=== PATIENT | male | born 2000 | race Caucasian/White ===

== ENCOUNTER 2021-01-14 13:29 | Inpatient (IN) ==
[2021-01-14] MEDS ORDERED: SODIUM CHLORIDE 0.9% 500 ML IV STA (14:23)
--- NOTE | 2021-01-14 14:25 | Emergency Department Note ---
Impression & Plan Lyme carditis ED Provider Note Provider: Eliu Arias MD DATE OF SERVICE: 01/14/2021 CHIEF COMPLAINT: Fatigue, dizzy, heart issue HISTORY OF PRESENT ILLNESS: Patient is a otherwise healthy 20-year-old gentleman presenting today referred from the outpatient clinic for possible heart issue. Patient reports over the past approximately 5 days has developed some intermittent palpitations as low heart rate with some fatigue and dizziness. No syncope reported. Patient was overseas in [place] when this started. Denies any fever or illness and had negative Covid test prior to returning here. States he was at the clinic today for evaluation given his complaints was noted to have an abnormal EKG and was sent here for further evaluation. Does report 2 weeks ago before leaving he tells a blotchy rash across his thorax and had some transient fevers and myalgias with this ; rash has resolved. Patient denies any shortness of breath or abdominal symptoms such as nausea vomiting or diarrhea at this time. Denies any pain complaints. Rash again has resolved at this time. He has concerns for possible tickborne illness. REVIEW OF SYSTEMS: A total of 10 review of systems was obtained and negative except as stated above in the HPI. PAST MEDICAL HISTORY: As noted above MEDICATIONS: No prescription medications SOCIAL HISTORY:non-smoker, [employer] student PHYSICAL EXAM: GENERAL: alert and oriented in no acute distress on stretcher Head: normocephalic and atraumatic EYES: No injection, discharge or icterus. NECK: Trachea midline. Supple. ENT: Mucous membranes pink and moist. Pharynx without erythema or exudate. LUNGS: Airway patent. No retractions. Breath sounds clear with good air entry bilaterally. HEART: Regular bradycardic rate and rhythm. No chest wall tenderness ABDOMEN: Soft and non-tender, without guarding or rebound. No hepatosplenomegaly or masses BACK: No midline tenderness, no SI joint tenderness. No bilateral flank tenderness. SKIN: Acyanotic, warm, dry, without rashes EXTREMITIES: Without swelling, tenderness or deformity NEUROLOGICAL: No focal deficits. No aphasia. No facial droop or slurred speech. Normal strength and tone in the extremities. Sensation to gross touch normal. Ambulatory. EK bpm appears to be 2:1 heart block with PAC and significant IA prolongation. CONTINUOUS CARDIAC MONITORING: was ordered and showed a heart rate of bpm in 2- 1 heart block with occasional PAC later transient. Later some intermittent periods of sinus rhythm versus accelerated junctional rhythm. Patient's laboratory studies and imaging reviewed. Differential includes Infection, dehydration, metabolic abnormality, hypo/hyperglycemia, electrolyte disturbance, anemia, hypoxia, cardiac sources, intracerebral event, toxicologic, neurologic, as well as other pathologies. IMPRESSION/MEDICAL DECISION MAKING: Patient complains of fatigue and weakness but no syncope. Not hypoxic or tachycardic. Lower suspicion for PE. Given the EKG question AV dysfunction and possible infectious source such as tickborne illness. Basic labs were sent including Lyme screen and anaplasmosis screen. Basic labs are reassuring chest x-ray without acute findings. Of lower suspicion for acute PE as is no evidence of DVT on clinical exam and. Symptoms do not seem that consistent with PE. Lyme screen is positive. Anaplasmosis negative. Discussed with cardiology likely a low degree heart block. 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 Patient has been hemodynamically stable here. Covid negative. Hospitalist contacted. Patient family updated at bedside. DIAGNOSIS: Lyme carditis DISPOSITION: Hospitalist will evaluate Patient was agreeable with this plan. Past Med/Surg History Social History Smoking Status: Never smoker Feels Safe at Home: Yes Allergies Allergies Allergy/AdvReac Type Severity Reaction Status Date / Time Penicillins Allergy Rash Unverified 01/14/21 16:04 Home Meds Home Medications Medication Instructions Recorded Confirmed diphenhydramine HCl 25 mg capsule 25 mg PO Q6H PRN 01/14/21 01/14/21 (Benadryl) fexofenadine 180 mg tablet 180 mg PO DAILY 01/14/21 01/14/21 fluticasone propionate 50 2 spray INTRANASAL DAILY 01/14/21 01/14/21 mcg/actuation nasal spray,suspension Results & Data (ED) Vital Signs Vital Signs - 24 hr 01/14/21 13:52 01/14/21 14:25 01/14/21 15:52 Temperature 37.3 C Temperature Source Oral Pulse Rate 43 L 79 Pulse Rate [Apical] 45 L Pulse Rate from SpO2 Sensor Pulse Rhythm Regular Pulse Rhythm [Apical] Irregular Pulse Strength Normal Respiratory Rate 20 16 16 Respiratory Effort / Characteristics Non-Labored Spontaneous Non-Labored Respiratory Depth Normal Normal Respiratory Pattern Regular Blood Pressure 118/73 122/72 Blood Pressure [Right Arm] 138/66 Blood Pressure Mean 88 88 Blood Pressure Mean [Right Arm] 90 Pulse Oximetry 99 99 100 Oxygen Delivery Method Room Air Room Air Sepsis Recent Fever Within 48 Hours No Sepsis New/Unexplained Change in Mental Status N/A Sepsis Action Taken by Nursing No Action Required 01/14/21 16:00 01/14/21 17:00 01/14/21 17:30 Temperature Temperature Source Pulse Rate 86 84 88 Pulse Rate [Apical] Pulse Rate from SpO2 Sensor 87 Pulse Rhythm Pulse Rhythm [Apical] Pulse Strength Respiratory Rate 15 14 16 Respiratory Effort / Characteristics Respiratory Depth Respiratory Pattern Blood Pressure 133/79 132/75 113/67 Blood Pressure [Right Arm] Blood Pressure Mean 97 94 82 Blood Pressure Mean [Right Arm] Pulse Oximetry 100 100 100 Oxygen Delivery Method Sepsis Recent Fever Within 48 Hours Sepsis New/Unexplained Change in Mental Status Sepsis Action Taken by Nursing 01/14/21 18:01 Temperature Temperature Source Pulse Rate 63 Pulse Rate [Apical] Pulse Rate from SpO2 Sensor Pulse Rhythm Pulse Rhythm [Apical] Pulse Strength Respiratory Rate 17 Respiratory Effort / Characteristics Respiratory Depth Respiratory Pattern Blood Pressure 110/71 Blood Pressure [Right Arm] Blood Pressure Mean 84 Blood Pressure Mean [Right Arm] Pulse Oximetry 99 Oxygen Delivery Method Sepsis Recent Fever Within 48 Hours Sepsis New/Unexplained Change in Mental Status Sepsis Action Taken by Nursing Laboratory Data Result diagrams: 01/14/21 14:26 01/14/21 14:26 Lab Results 01/14/21 01/14/21 01/14/21 Range/Units 14:26 14:26 14:26 WBC 8.14 (4.8-10.8) K/uL RBC 4.40 L (4.7-6.1) M/uL Hgb 13.0 L (14.0-18.0) g/dL Hct 39.6 L (42-52) % MCV 90.0 (80-100) fL MCH 29.5 (25-34) pg MCHC 32.8 (32-36) g/dL RDW Std Deviation 43.9 (36.4-46.3) fL RDW Coeff of Pavel 13.3 (11.5-14.5) % Plt Count 356 (130-400) K/uL MPV 10.9 H (7.4-10.4) fL Immature Gran % (Auto) 0.2 % Neut % (Auto) 58.1 % Lymph % (Auto) 28.3 % Elmore % (Auto) 9.1 % Eos % (Auto) 3.7 % Baso % (Auto) 0.6 % Neut # (Auto) 4.73 (1.4-6.5) K/uL Lymph # (Auto) 2.30 (1.2-3.4) K/uL Elmore # (Auto) 0.74 H (0.11-0.59) K/uL Eos # (Auto) 0.30 (0-0.5) K/uL Baso # (Auto) 0.05 (0-0.2) K/uL Immature Gran # (Auto) 0.02 (0.00-0.02) K/uL PT 10.4 (9.0-12.0) Seconds INR 1.0 (0.9-1.1) Sodium (136-145) mmol/L Potassium (3.5-5.1) mmol/L Chloride (98-107) mmol/L Carbon Dioxide (21-32) mmol/L Anion Gap (3-11) BUN (7-18) mg/dl Creatinine (0.6-1.4) mg/dl Est Cr Clr Drug Dosing ml/min Est GFR ( Amer) ml/min Est GFR (Non-Af Amer) ml/min BUN/Creatinine Ratio (10-20) Glucose (70-99) mg/dl Calcium (8.5-10.1) mg/dl Magnesium (1.8-2.4) mg/dl Total Bilirubin (0.2-1) mg/dl AST (15-37) U/L ALT (12-78) U/L Alkaline Phosphatase (45-117) U/L Troponin I (0-0.045) ng/ml Total Protein (6.4-8.2) gm/dl Albumin (3.4-5.0) gm/dl Globulin (2.5-4.0) gm/dl Albumin/Globulin Ratio (0.9-2) TSH (0.300-4.500) uIu/ml Anaplasma Smear See Comment Lyme Disease IgG Ab (Negative) Lyme Disease IgM Ab (Negative) COVID-19 Eval Order SARS-CoV-2 (PCR) (Negative) 01/14/21 01/14/21 01/14/21 Range/Units 14:26 14:26 14:38 WBC (4.8-10.8) K/uL RBC (4.7-6.1) M/uL Hgb (14.0-18.0) g/dL Hct (42-52) % MCV (80-100) fL MCH (25-34) pg MCHC (32-36) g/dL RDW Std Deviation (36.4-46.3) fL RDW Coeff of Pavel (11.5-14.5) % Plt Count (130-400) K/uL MPV (7.4-10.4) fL Immature Gran % (Auto) % Neut % (Auto) % Lymph % (Auto) % Elmore % (Auto) % Eos % (Auto) % Baso % (Auto) % Neut # (Auto) (1.4-6.5) K/uL Lymph # (Auto) (1.2-3.4) K/uL Elmore # (Auto) (0.11-0.59) K/uL Eos # (Auto) (0-0.5) K/uL Baso # (Auto) (0-0.2) K/uL Immature Gran # (Auto) (0.00-0.02) K/uL PT (9.0-12.0) Seconds INR (0.9-1.1) Sodium 142 (136-145) mmol/L Potassium 3.6 (3.5-5.1) mmol/L Chloride 112 H (98-107) mmol/L Carbon Dioxide 26 (21-32) mmol/L Anion Gap 4.0 (3-11) BUN 9 (7-18) mg/dl Creatinine 0.74 (0.6-1.4) mg/dl Est Cr Clr Drug Dosing 154.1 ml/min Est GFR ( Amer) > 150.0 ml/min Est GFR (Non-Af Amer) 132.8 ml/min BUN/Creatinine Ratio 12.4 (10-20) Glucose 93 (70-99) mg/dl Calcium 8.4 L (8.5-10.1) mg/dl Magnesium 2.2 (1.8-2.4) mg/dl Total Bilirubin 0.2 (0.2-1) mg/dl AST 16 (15-37) U/L ALT 26 (12-78) U/L Alkaline Phosphatase 60 (45-117) U/L Troponin I < 0.015 (0-0.045) ng/ml Total Protein 6.7 (6.4-8.2) gm/dl Albumin 3.1 L (3.4-5.0) gm/dl Globulin 3.6 (2.5-4.0) gm/dl Albumin/Globulin Ratio 0.9 (0.9-2) TSH 1.460 (0.300-4.500) uIu/ml Anaplasma Smear Lyme Disease IgG Ab Positive A (Negative) Lyme Disease IgM Ab Positive A (Negative) COVID-19 Eval Order Covid19 at [facility] SARS-CoV-2 (PCR) (Negative) 01/14/21 Range/Units 14:38 WBC (4.8-10.8) K/uL RBC (4.7-6.1) M/uL Hgb (14.0-18.0) g/dL Hct (42-52) % MCV (80-100) fL MCH (25-34) pg MCHC (32-36) g/dL RDW Std Deviation (36.4-46.3) fL RDW Coeff of Pavel (11.5-14.5) % Plt Count (130-400) K/uL MPV (7.4-10.4) fL Immature Gran % (Auto) % Neut % (Auto) % Lymph % (Auto) % Elmore % (Auto) % Eos % (Auto) % Baso % (Auto) % Neut # (Auto) (1.4-6.5) K/uL Lymph # (Auto) (1.2-3.4) K/uL Elmore # (Auto) (0.11-0.59) K/uL Eos # (Auto) (0-0.5) K/uL Baso # (Auto) (0-0.2) K/uL Immature Gran # (Auto) (0.00-0.02) K/uL PT (9.0-12.0) Seconds INR (0.9-1.1) Sodium (136-145) mmol/L Potassium (3.5-5.1) mmol/L Chloride (98-107) mmol/L Carbon Dioxide (21-32) mmol/L Anion Gap (3-11) BUN (7-18) mg/dl Creatinine (0.6-1.4) mg/dl Est Cr Clr Drug Dosing ml/min Est GFR ( Amer) ml/min Est GFR (Non-Af Amer) ml/min BUN/Creatinine Ratio (10-20) Glucose (70-99) mg/dl Calcium (8.5-10.1) mg/dl Magnesium (1.8-2.4) mg/dl Total Bilirubin (0.2-1) mg/dl AST (15-37) U/L ALT (12-78) U/L Alkaline Phosphatase (45-117) U/L Troponin I (0-0.045) ng/ml Total Protein (6.4-8.2) gm/dl Albumin (3.4-5.0) gm/dl Globulin (2.5-4.0) gm/dl Albumin/Globulin Ratio (0.9-2) TSH (0.300-4.500) uIu/ml Anaplasma Smear Lyme Disease IgG Ab (Negative) Lyme Disease IgM Ab (Negative) COVID-19 Eval Order SARS-CoV-2 (PCR) NEGATIVE (Negative) Administered Medications Discontinued Medications Sodium Chloride (Nss) 500 mls @ 999 mls/hr IV .Q31M STA Stop: 01/14/21 14:53 Last Infusion: 01/14/21 15:51 Dose: 0 mls/hr Documented by: [id number] Admin: 01/14/21 14:33 Dose: 999 mls/hr Documented by: [id number] Ceftriaxone Sodium (Rocephin) 2,000 mg in 70 mls @ 140 mls/hr IV NOW STA Stop: 01/14/21 16:26 Last Infusion: 01/14/21 17:26 Dose: 0 mls/hr Documented by: [id number] Admin: 01/14/21 16:51 Dose: 140 mls/hr Documented by: [id number] Imaging Data Radiologist's Impression: Chest X-Ray 01/14/21 14:23 SINGLE VIEW CHEST CLINICAL HISTORY: Dysrhythmia. Dizziness. FINDINGS: An AP, portable, upright chest radiograph is obtained. No prior studies are available for comparison at the time of dictation. The c ardiomediastinal silhouette is unremarkable. The lungs and pleural spaces are clear. No pneumothorax is seen. The bony thorax is grossly intact. IMPRESSION: No active disease in the chest. ACT 112: Negative or not required by law. Electronically signed by: Robbie Matthews M.D. 01/14/2021 3:13 PM Discharge Plan Visit Data Chief Complaint: Abnormal Labs/Diagnostic Testing Stated Complaint: ABNORMAL EKG ED Provider: Eliu Arias Discharge Problem: Lyme carditis Patient Disposition: Being Evaluated by Hospitalist Forms Stand Alone Forms: [facility] Prescriptions Prescriptions: No Action fexofenadine [Shelly] 180 mg Tablet 180 mg PO DAILY RF: 0 diphenhydramine HCl [Benadryl] 25 mg Capsule 25 mg PO Q6H PRN (Reason: Allergy Symptoms) RF: 0 fluticasone propionate [Flonase] 50 mcg/actuation Rhame,Suspension 2 spray INTRANASAL DAILY RF: 0 Referrals Referrals: Jorge Gutierrez [Physician] -
[2021-01-14 14:46] LABS: Basophils # (auto) 0.05 K/uL (0-0.2); Basophils % (auto) 0.6 %; Eosinophils % (auto) 3.7 %; Hematocrit (blood only) 39.6 % (42-52); Immature Granulocytes # (auto) 0.02 K/uL (0.00-0.02); Immature Granulocytes % (auto) 0.2 %; Lymphocytes % (auto) 28.3 %; Mean Corpuscular Hemoglobin 29.5 pg (25-34); Mean Corpuscular Hgb Conc 32.8 g/dL (32-36); Mean Platelet Volume 10.9 fL (7.4-10.4); Monocytes # (auto) 0.74 K/uL (0.11-0.59); Monocytes % (auto) 9.1 %; Neutrophils # (auto) 4.73 K/uL (1.4-6.5); Neutrophils % (auto) 58.1 %; Platelet Count 356 K/uL (130-400); RDW Coefficient of Variation 13.3 % (11.5-14.5); RDW Standard Deviation 43.9 fL (36.4-46.3); White Blood Count 8.14 K/uL (4.8-10.8)
[2021-01-14 14:54] LABS: Prothrombin Time 10.4 Seconds (9.0-12.0)
[2021-01-14 15:08] LABS: Alanine Aminotransferase 26 U/L (12-78); Albumin Level 3.1 gm/dl (3.4-5.0); Aspartate Aminotransferase 16 U/L (15-37); BUN Creatinine Ratio 12.4 (10-20); Blood Urea Nitrogen 9 mg/dl (7-18); Calcium 8.4 mg/dl (8.5-10.1); Carbon Dioxide 26 mmol/L (21-32); Chloride 112 mmol/L (98-107); Creatinine Clr Calc Pharmacy 154.1 ml/min; Est GFR (African American) > 150.0 ml/min; Est GFR (Non-African American) 132.8 ml/min; Glucose 93 mg/dl (70-99); Potassium 3.6 mmol/L (3.5-5.1); Sodium 142 mmol/L (136-145)
--- NOTE | 2021-01-14 15:15 | XRay Report ---
SINGLE VIEW CHEST CLINICAL HISTORY: Dysrhythmia. Dizziness. FINDINGS: An AP, portable, upright chest radiograph is obtained. No prior studies are available for c omparison at the time of dictation. The cardiomediastinal silhouette is unremarkable. The lungs and pleural spaces are clear. No pneumothorax is seen. The bony thorax is grossly intact. IMPRESSION: No active disease in the chest. ACT 112: Negative or not required by law. Electronically signed by: Robbie Matthews M.D. 01/14/2021 3:13 PM
[2021-01-14 15:18] LABS: Albumin Globulin Ratio 0.9 (0.9-2); Alkaline Phosphatase 60 U/L (45-117); Bilirubin,Total 0.2 mg/dl (0.2-1); Globulin 3.6 gm/dl (2.5-4.0); Magnesium 2.2 mg/dl (1.8-2.4); Total Protein 6.7 gm/dl (6.4-8.2); Troponin I < 0.015 ng/ml (0-0.045)
[2021-01-14 15:43] LABS: Lyme Ab IgG w/WB Rflx Positive (Negative); Lyme Ab IgM w/WB Rflx Positive (Negative)
--- NOTE | 2021-01-14 15:45 | Electrocardiogram Report ---
Test Reason : Blood Pressure : / mmHG Vent. Rate : 049 BPM Atrial Rate : 082 BPM P-R Int : 000 ms QRS Dur : 098 ms QT Int : 494 ms P-R-T Axes : 059 096 081 degrees QTc Int : 446 ms Sinus rhythm with 2nd degree A-V block (Mobitz I) Rightward axis Borderline ECG No previous ECGs available Confirmed by David Lucia ([id number]) on 01/14/2021 3:45:30 PM Referred By: Eligio Galo Confirmed By:David Lucia
[2021-01-14] MEDS ORDERED: cefTRIAXone SODIUM 2,000 MG/70 ML BAG IV STA (15:57)
--- NOTE | 2021-01-14 16:54 | History & Physical Report ---
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 Patient is pleasant and historian. Patient apparently had a blotchy rash across his thorax along with some myalgias and fevers 2 weeks ago which had cleared spontaneously. Patient did not seek medical attention at that time. Over the past 5 days he feels he has been having some palpitations irregular heart rate. He has been having some mild fatigue and dizziness associated with this. He did go to the [facility] today and was found to have abnormal EKG which prompted his visit to the emergency room today. On lab work-up, he was found to have Lyme IgM and IgG that was positive with a pending Western blot. Patient is now being admitted for Lyme carditis. I did discuss the case with the patient with both his parents in the room and everybody is agreeable to the plan thus far. Allergies Allergy/AdvReac Type Severity Reaction Status Date / Time Penicillins Allergy Rash Unverified 01/14/21 16:04 Home Medications Medication Instructions Recorded Confirmed Type diphenhydramine HCl 25 mg capsule 25 mg PO Q6H PRN 01/14/21 01/14/21 History (Benadryl) fexofenadine 180 mg tablet 180 mg PO DAILY 01/14/21 01/14/21 History fluticasone propionate 50 2 spray INTRANASAL DAILY 01/14/21 01/14/21 History mcg/actuation nasal spray,suspension Past Med/Surg History Social History Smoking Status: Never smoker Feels Safe at Home: Yes Review of Systems Constitutional: + weakness; no fever, no chills, no weight loss and no weight gain Eyes: as per Subjective / HPI Respiratory: no cough, no chest congestion, no dyspnea and no dyspnea on exertion Cardiovascular: + problem reported; no chest pain, no orthopnea, no palpitations, no lightheadedness, no syncope and no edema Gastrointestinal: no abdominal pain, no nausea, no vomiting, no constipation and no diarrhea/loose stools Musculoskeletal: no back pain, no neck pain, no joint pain, no stiffness and no myalgia Integumentary: no rash Neurologic: no gait abnormality, no unsteadiness, no falls and no generalized weakness Physical Exam Constitutional: cooperative; no acute distress Neck: trachea midline, no thyromegaly Respiratory: normal respiratory effort Auscultation: lungs clear to auscultation bilaterally; no crackles, no rales, no rhonchi and no wheezes Cardiovascular: Rate/Rhythm: + bradycardic and + irregularly irregular Heart Sounds: normal S1 and normal S2 Gastrointestinal (Abdomen): Inspection/Auscultation: abdomen normal to inspection Percussion/Palpation: abdomen soft; abdomen nontender, no guarding, abdomen not rigid and no hepatosplenomegaly Skin: no rashes, warm and dry Results & Data Results & Data ([facility]) Vital Signs (Past 12 Hours) Vital Signs Temp Pulse Pulse Resp BP BP Pulse Ox 01/14/21 16:00 86 15 133/79 100 01/14/21 15:52 79 16 122/72 100 01/14/21 14:25 45 L 16 138/66 99 01/14/21 13:52 37.3 C 43 L 20 118/73 99 Laboratory Results Laboratory Results WBC 8.14 K/uL (4.8-10.8) 01/14/21 14:26 RBC 4.40 M/uL (4.7-6.1) L 01/14/21 14:26 Hgb 13.0 g/dL (14.0-18.0) L 01/14/21 14:26 Hct 39.6 % (42-52) L 01/14/21 14:26 MCV 90.0 fL (80-100) 01/14/21 14:26 MCH 29.5 pg (25-34) 01/14/21 14:26 MCHC 32.8 g/dL (32-36) 01/14/21 14:26 RDW Std Deviation 43.9 fL (36.4-46.3) 01/14/21 14:26 RDW Coeff of Pavel 13.3 % (11.5-14.5) 01/14/21 14: Plt Count 356 K/uL (130-400) 01/14/21 14: MPV 10.9 fL (7.4-10.4) H 01/14/21 14:26 Immature Gran % (Auto) 0.2 % 01/14/21 14: Neut % (Auto) 58.1 % 01/14/21 14: Lymph % (Auto) 28.3 % 01/14/21 14:26 [place]aca % (Auto) 9.1 % 01/14/21 14:26 Eos % (Auto) 3.7 % 01/14/21 14:26 Baso % (Auto) 0.6 % 01/14/21 14: Neut # (Auto) 4.73 K/uL (1.4-6.5) 01/14/21 14: Lymph # (Auto) 2.30 K/uL (1.2-3.4) 01/14/21 14:26 Baca # (Auto) 0.74 K/uL (0.11-0.59) H 01/14/21 14:26 Eos # (Auto) 0.30 K/uL (0-0.5) 01/14/21 14: Baso # (Auto) 0.05 K/uL (0-0.2) 01/14/21 14: Immature Gran # (Auto) 0.02 K/uL (0.00-0.02) 01/14/21 14: PT 10.4 Seconds (9.0-12.0) 01/14/21 14:26 INR 1.0 (0.9-1.1) 01/14/21 14:26 Sodium 142 mmol/L (136-145) 01/14/21 14:26 Potassium 3.6 mmol/L (3.5-5.1) 01/14/21 14:26 Chloride 112 mmol/L (98-107) H 01/14/21 14:26 Carbon Dioxide 26 mmol/L (21-32) 01/14/21 14:26 Anion Gap 4.0 (3-11) 01/14/21 14:26 BUN 9 mg/dl (7-18) 01/14/21 14:26 Creatinine 0.74 mg/dl (0.6-1.4) 01/14/21 14:26 Est Cr Clr Drug Dosing 154.1 ml/min 01/14/21 14:26 Est GFR ( Amer) > 150.0 ml/min 01/14/21 14:26 Est GFR (Non-Af Amer) 132.8 ml/min 01/14/21 14:26 BUN/Creatinine Ratio 12.4 (10-20) 01/14/21 14:26 Glucose 93 mg/dl (70-99) 01/14/21 14:26 Calcium 8.4 mg/dl (8.5-10.1) L 01/14/21 14:26 Magnesium 2.2 mg/dl (1.8-2.4) 01/14/21 14:26 Total Bilirubin 0.2 mg/dl (0.2-1) 01/14/21 14:26 AST 16 U/L (15-37) 01/14/21 14:26 ALT 26 U/L (12-78) 01/14/21 14:26 Alkaline Phosphatase 60 U/L (45-117) 01/14/21 14:26 Troponin I < 0.015 ng/ml (0-0.045) 01/14/21 14:26 Total Protein 6.7 gm/dl (6.4-8.2) 01/14/21 14:26 Albumin 3.1 gm/dl (3.4-5.0) L 01/14/21 14:26 Globulin 3.6 gm/dl (2.5-4.0) 01/14/21 14:26 Albumin/Globulin Ratio 0.9 (0.9-2) 01/14/21 14:26 TSH 1.460 uIu/ml (0.300-4.500) 01/14/21 14:26 Anaplasma Smear See Comment 01/14/21 14:26 Lyme Disease IgG Ab Positive (Negative) A 01/14/21 14:26 Lyme Disease IgM Ab Positive (Negative) A 01/14/21 14:26 COVID-19 Eval Order Covid19 at [facility] 01/14/21 14:38 SARS-CoV-2 (PCR) NEGATIVE (Negative) 01/14/21 14:38 Impressions Chest X-Ray 01/14/21 14:23 SINGLE VIEW CHEST CLINICAL HISTORY: Dysrhythmia. Dizziness. FINDINGS: An AP, portable, upright chest radiograph is obtained. No prior studies are available for comparison at the time of dictation. The cardiomediastinal silhouette is unremarkable. The lungs and pleural spaces are clear. No pneumothorax is seen. The bony thorax is grossly intact. IMPRESSION: No active disease in the chest. ACT 112: Negative or not required by law. Electronically signed by: Robbie Matthews M.D. 01/14/2021 3:13 PM PG Care Time/CCT Total # of Minutes Spent Total Time Spent with Patient: Total time spent is greater than 50% in coordination of care (as documented) at patient's floor/unit and/or counseling patient: Coding Level of Care Code 62353 Initial Inpt Care Lvl 3 Diagnoses Lyme carditis A69.29; I51.89
[2021-01-14] MEDS ORDERED: ZOLPIDEM TARTRATE 5 MG TAB PO PRN (19:36)
[2021-01-14] MEDS ORDERED: diphenhydrAMINE Capsule 25 MG CAP PO PRN (19:36)
[2021-01-15] MEDS: FEXOFENADINE HCL 180 MG TAB PO SCH (08:19)
[2021-01-15] MEDS: FLUTICASONE PROPIONATE NA SPR 16 GM BTL SCH (08:19)
--- NOTE | 2021-01-15 09:21 | Medical Student Progress Note ---
Date of Service January 15, 2021 Assessment & Plan (1) Lyme carditis: Plan: Pt is a 20 yo male with no PMH with lyme carditis. 1) Lyme Carditis In light of consistent outdoor exposure, presence of rash with fever 2 weeks prior, new onset heart block, and presence of Lyme IgM and IgG, diagnosis is Lyme Carditis. Most recent ECG demonstrates 3rd degree heart block. Plan is to treat and monitor in hospital until normal ECG and then discharge with oral doxycycline for 14 days. - Continued treatment with Ceftriaxone IV 70 mls @ 100 mls/hr IV Q24 - Was seen by Cardiology, did not reccomend pacing and suggested consideration for at-home treatment. - Will monitor ECG for heart block improvements. Full Code F/N/E: Normal Diet Dispo: Med/Tele DVR Prophylaxis: Walking Admission and Anticipated Discharge Date Admission Date: January 14, 2021 Supervising Attestation I personally examined the patient and verified all coreas points of history and exam, discussed case, and agree with decision making with Ramiro Gr MS3 Feels okay. Eating well. Expresses good understanding of the situation. Vitals noted. In general he is awake and alert pleasant no distress. HEENT normocephalic atraumatic mucous membranes moist. Breathing unlabored no accessory muscle use good effort. Skin shows no rashes no pallor or icterus. Neuro without focal deficits. EKG with complete heart block. Lyme carditiswith complete heart block. Ceftriaxone until EKG normalizes. Then anticipate home on doxycycline. Otherwise as above. Subjective Maximino Cintron is a 20 yo male with no pmh presenting on the second day of his hospital admission for suspected lyme carditis. 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 Pt reports rash accross the thorax approx 2 weeks ago that was accompanied by fever, joint pain, adn neck stiffness. Maximino was in [place] one week ago when symptoms of heart palpitations, fatigue, and dizziness began. He visited the ER yesterday, 01-14-21, following an abnormal ECG during an outpatient examination at [facility]. In the ER an ECG showed second degree heart block type II and PCR was positive for Lyme IgM and IgG. Western blot is pending. The pt was started on IV Ceftriaxone and serial ECG were ordered. Today, Maximino does not report any symptoms with the except of an occasional "strong heart beat". He does not endorse fever, dizziness, fatigue, chest discomfort, fast heart rate, pain, or sensory or motor changes. Review of Systems Review of Systems: Constitutional: Denies fever Neuro: Denies Headache, dizziness, changes in vision, changes in hearing, sensory disfunction, motor changes. Cardio: Endorses abnormal intensity, Denies palpitations, chest pain Pulm: Denies SOB, cough GI: Denies n/v, constipations, changes in bowel movements : Denies changes in urination Psych: Denies delusions Physical Exam Physical Exam: General: Pt was sitting up in bed, conversant, in no apparent distress. Vitals: 116/69, 92 HR, 17 RR, 37.3 C, 100 O2 sat HEENT: PEERLA, EOM intact, appropriate finger-rub response Cardio: Strong pulse, Irregularly irregular, No additional heart sounds auscultated. Pulm: CTA Neuro: CN 2-12 intact, no sensory deficits b/l, motor 5/5 b/l Psych: Affect congruent with mood. Results & Data ([facility]) Vital Signs (Past 12 Hours) Vital Signs Temp Pulse Pulse Resp BP Pulse Ox 01/15/21 07:55 37.3 C 92 H 17 116/69 100 01/15/21 04:02 37.1 C 70 18 118/71 100 01/14/21 23:31 46 L 01/14/21 23:16 36.7 C 52 L 18 104/62 99 Medications Administered Current Inpatient Medications Diphenhydramine HCl (Diphenhydramine Capsule 25 Mg Cap) 25 mg PO Q6H PRN PRN Reason: Allergy Symptoms Stop: 02/13/21 19:35 Fexofenadine HCl (Fexofenadine Hcl 180 Mg Tab) 180 mg PO DAILY ONI Stop: 02/14/21 08:59 Last Admin: 01/15/21 08:19 Dose: 180 mg Documented by: Fluticasone Propionate (Fluticasone Propionate Na Spr 16 Gm Btl) 2 sprays NA DAILY ONI Stop: 02/14/21 08:59 Last Admin: 01/15/21 08:19 Dose: Not Given Documented by: Ceftriaxone Sodium 2,000 mg/ (Dextrose) 70 mls @ 100 mls/hr IV Q24H ONI; Protocol Stop: 01/25/21 17:59 Zolpidem Tartrate (Zolpidem Tartrate 5 Mg Tab) 5 mg PO HS PRN PRN Reason: Sleep Stop: 02/13/21 19:35
--- NOTE | 2021-01-15 11:45 | Cardiology Consultation ---
Date of Consultation January 15, 2021 Assessment & Plan (1) Second degree AV block, Mobitz type I: (2) Lyme carditis: 1. Second-degree AV block: He presents with symptomatic second-degree AV block. His symptoms are palpitations and a sensation of slow heart rate but it has not affected his exercise ability substantially and he does not have lightheadedness or dizziness. He has not had presyncope or syncope. His heart rate with 2-1 AV block is around 50 bpm which is acceptable. I suspect his second-degree AV block is due to Lyme disease, if so it should resolve quickly. I do not see any role for pacing at this point. 2. Lyme carditis: It is most likely that his AV block will resolve fairly quickly with treatment of his Lyme disease. I would do the standard approach to treatment of Lyme disease with intravenous antibiotics and see whether this resolves. I do not think he needs to stay in the hospital because of the AV block, I can follow that as an outpatient. History of Present Illness Reason for Consultation: Second-degree AV block Attending Physician: Leo Rodarte, History of Present Illness This is a 20-year-old male who presents with palpitations and a sensation of slow heart rate but has no symptoms of lightheadedness, dizziness or palpitations. His symptoms started around 1 week ago. He was observed to have second-degree AV block as a cause of his symptoms. 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 His presenting electrocardiogram on January 14, 2021 at 1421 shows sinus rhythm with second-degree AV block, his atrial rate was 82 and his ventricular rate was 49. Another electrocardiogram done the same day at 1945 shows sinus rhythm with 2-1 AV block, the ventricular rate was 49 bpm. A third electrocardiogram this morning at 05 38 shows 2-1 AV block with a ventricular rate of 52 bpm. On telemetry he alternates between various types of second-degree AV block and occasional 1-1 AV block with long FL interval and 2-1 AV block. Since he has been in the hospital he has felt well in general. Allergies Allergy/AdvReac Type Severity Reaction Status Date / Time Penicillins Allergy Rash Unverified 01/14/21 16:04 Home Medications Medication Instructions Recorded Confirmed Type diphenhydramine HCl 25 mg capsule 25 mg PO Q6H PRN 01/14/21 01/14/21 History (Benadryl) fexofenadine 180 mg tablet 180 mg PO DAILY 01/14/21 01/14/21 History fluticasone propionate 50 2 spray INTRANASAL DAILY 01/14/21 01/14/21 History mcg/actuation nasal spray,suspension Patient History Social History Smoking Status: Never smoker Hx Alcohol Use: No Hx Substance Use: No Preferred Language: Lithuanian Communication Ability: Effective Actuarial Clerk Required: No Beliefs That Will Affect Care: None Current Living Situation: Parent Feels Safe at Home: Yes Assistive Devices: None Review of Systems Review of Systems: His review of systems is notable only as in the HPI. Physical Exam Physical Exam: Constitutional: Alert, cooperative and in no distress. HEENT: Unremarkable Neck: No jugular venous distention, carotid pulses are normal and equal bilaterally without bruits. Pulmonary: Clear to auscultation bilaterally. Cardiac: Regular rhythm with no murmur, gallop or rub. Abdomen: Soft, nontender with normal bowel sounds. Extremities: No edema. Distal pulses intact. Neurologic: No focal findings. Gait is steady. Skin: No rash, ecchymoses or petechiae. Results & Data ([facility]) Vital Signs (Past 12 Hours) Vital Signs Temp Pulse Resp BP Pulse Ox 01/15/21 11:21 36.9 C 88 18 116/69 98 01/15/21 07:55 37.3 C 92 H 17 116/69 100 01/15/21 04:02 37.1 C 70 18 118/71 100 Laboratory Results Cardiac Enzymes 01/14/21 Range/Units 14:26 AST 16 (15-37) U/L Troponin I < 0.015 (0-0.045) ng/ml Coagulation 01/14/21 Range/Units 14:26 PT 10.4 (9.0-12.0) Seconds CBC 01/14/21 Range/Units 14:26 WBC 8.14 (4.8-10.8) K/uL RBC 4.40 L (4.7-6.1) M/uL Hgb 13.0 L (14.0-18.0) g/dL Hct 39.6 L (42-52) % Plt Count 356 (130-400) K/uL Neut # (Auto) 4.73 (1.4-6.5) K/uL Lymph # (Auto) 2.30 (1.2-3.4) K/uL [place] # (Auto) 0.74 H (0.11-0.59) K/uL Eos # (Auto) 0.30 (0-0.5) K/uL Baso # (Auto) 0.05 (0-0.2) K/uL Comprehensive Metabolic Panel 01/14/21 Range/Units 14:26 Sodium 142 (136-145) mmol/L Potassium 3.6 (3.5-5.1) mmol/L Chloride 112 H (98-107) mmol/L Carbon Dioxide 26 (21-32) mmol/L BUN 9 (7-18) mg/dl Creatinine 0.74 (0.6-1.4) mg/dl Glucose 93 (70-99) mg/dl Calcium 8.4 L (8.5-10.1) mg/dl AST 16 (15-37) U/L ALT 26 (12-78) U/L Alkaline Phosphatase 60 (45-117) U/L Total Protein 6.7 (6.4-8.2) gm/dl Albumin 3.1 L (3.4-5.0) gm/dl Intake and Output 01/14/21 01/15/21 01/15/21 22:59 06:59 14:59 Intake Total 107 / 0 1000 / 2070 Balance 1070 / 0 1000 / 0 Intake: IV 570 / 570 Sodium Chloride 0.9% 500 ml @ 500 / 500 999 mls/hr IV .Q31M STA Rx#: [id number] cefTRIAXone SODIUM 2,000 mg In 70 / 70 70 ml @ 140 mls/hr IV NOW STA Rx#:[id number] Oral 500 / 1500 1000 / 1500 Other: # Unmeasured Voids 0 1 Weight 69.3 kg 70 kg Weight Measurement Method Standing Scale Standing Scale PG Care Time/CCT Total # of Minutes Spent Total Time Spent with Patient: Total time spent is greater than 50% in coordination of care (as documented) at patient's floor/unit and/or counseling patient: Coding Level of Care Code 94328 Inpt Consult Level 4 Diagnoses Second degree AV block, Mobitz type I I44.1 Lyme carditis A69.29; I51.89
--- NOTE | 2021-01-15 16:47 | Electrocardiogram Report ---
Test Reason : Blood Pressure : / mmHG Vent. Rate : 049 BPM Atrial Rate : 049 BPM P-R Int : 408 ms QRS Dur : 096 ms QT Int : 478 ms P-R-T Axes : 046 095 095 degrees QTc Int : 431 ms Sinus rhythm with 1st degree A-V block with 2:1 A-V conduction Rightward axis Nonspecific T wave abnormality Abnormal ECG When compared with ECG of 14-JAN-2021 14:21, T wave inversion more evident in Anterolateral leads Confirmed by David Lucia ([id number]) on 01/15/2021 4:47:21 PM Referred By: Eligio Galo Confirmed By:David Lucia
--- NOTE | 2021-01-15 16:56 | Electrocardiogram Report ---
Test Reason : Blood Pressure : / mmHG Vent. Rate : 052 BPM Atrial Rate : 052 BPM P-R Int : 402 ms QRS Dur : 098 ms QT Int : 480 ms P-R-T Axes : 048 097 090 degrees QTc Int : 446 ms Sinus bradycardia with 1st degree A-V block with 2:1 A-V conduction Rightward axis Abnormal ECG When compared with ECG of 14-JAN-2021 19:45, (unconfirmed) Nonspecific T wave abnormality, improved in Lateral leads Confirmed by David Lucia ([id number]) on 01/15/2021 4:55:56 PM Referred By: Eligio Galo Confirmed By:David Lucia
--- NOTE | 2021-01-15 17:32 | Billing Data ---
Date of Service January 15, 2021 Coding Level of Care Code 59620 Subseq Hosp Care Lvl 3
[2021-01-15] MEDS ORDERED: cefTRIAXone SODIUM 2,000 MG in DEXTROSE 5% 50 ML IV SCH (18:00)
[2021-01-16 06:47] LABS: Basophils # (auto) 0.02 K/uL (0-0.2); Basophils % (auto) 0.4 %; Eosinophils # (auto) 0.19 K/uL (0-0.5); Eosinophils % (auto) 3.9 %; Hematocrit (blood only) 42.8 % (42-52); Hemoglobin 14.2 g/dL (14.0-18.0); Immature Granulocytes # (auto) 0.02 K/uL (0.00-0.02); Immature Granulocytes % (auto) 0.4 %; Lymphocytes # (auto) 1.58 K/uL (1.2-3.4); Lymphocytes % (auto) 32.6 %; Mean Corpuscular Hemoglobin 29.3 pg (25-34); Mean Corpuscular Hgb Conc 33.2 g/dL (32-36); Mean Corpuscular Volume 88.2 fL (80-100); Mean Platelet Volume 10.5 fL (7.4-10.4); Monocytes # (auto) 0.49 K/uL (0.11-0.59); Monocytes % (auto) 10.1 %; Neutrophils # (auto) 2.54 K/uL (1.4-6.5); Neutrophils % (auto) 52.6 %; Platelet Count 310 K/uL (130-400); RDW Coefficient of Variation 13.1 % (11.5-14.5); RDW Standard Deviation 41.9 fL (36.4-46.3); Red Blood Count 4.85 M/uL (4.7-6.1); White Blood Count 4.84 K/uL (4.8-10.8)
[2021-01-16 07:14] LABS: BUN Creatinine Ratio 11.9 (10-20); Blood Urea Nitrogen 8 mg/dl (7-18); Calcium 9.2 mg/dl (8.5-10.1); Carbon Dioxide 27 mmol/L (21-32); Chloride 108 mmol/L (98-107); Creatinine Clr Calc Pharmacy 178.1 ml/min; Est GFR (African American) > 150.0 ml/min; Est GFR (Non-African American) 140.9 ml/min; Glucose 96 mg/dl (70-99); Potassium 4.1 mmol/L (3.5-5.1); Sodium 139 mmol/L (136-145)
[2021-01-16] MEDS: FEXOFENADINE HCL 180 MG TAB PO SCH (09:05)
[2021-01-16] MEDS: FLUTICASONE PROPIONATE NA SPR 16 GM BTL SCH (09:05)
--- NOTE | 2021-01-16 09:23 | Cardiology Progress Note ---
Date of Service January 16, 2021 Assessment & Plan (1) Second degree AV block, Mobitz type I: (2) Lyme carditis: Plan: 1. Second-degree AV block: He presented with symptomatic second-degree AV block. His symptoms were palpitations and a sensation of slow heart rate but it had not affected his exercise ability substantially and he did not have lightheadedness or dizziness. He has not had presyncope or syncope. His heart rate with 2-1 AV block was around 50 bpm which is acceptable. He has had only first degree AV block since yesterday. I suspect his first-degree AV block is due to Lyme disease, if so it should resolve quickly. I have scheduled him for an office visit next week. 2. Lyme carditis: It is most likely that his AV block will resolve fairly quickly with treatment of his Lyme disease. I would do the standard approach to treatment of Lyme disease with antibiotics and confirm that this resolves. I do not think he needs to stay in the hospital because of the first degree AV block, I can follow that as an outpatient. Admission and Anticipated Discharge Date Admission Date: January 14, 2021 Subjective He is feeling well today, no chest pain or feeling of a slow or irregualar HR since yesterday AM Physical Exam Physical Exam: Constitutional: Alert, cooperative and in no distress. HEENT: Unremarkable Neck: No jugular venous distention, carotid pulses are normal and equal bilaterally without bruits. Pulmonary: Clear to auscultation bilaterally. Cardiac: Regular rhythm with no murmur, gallop or rub. Abdomen: Soft, nontender with normal bowel sounds. Extremities: No edema. Distal pulses intact. Neurologic: No focal findings. Gait is steady. Skin: No rash, ecchymoses or petechiae. Results & Data ([facility]) Vital Signs (Past 12 Hours) Vital Signs Temp Pulse Pulse Resp BP Pulse Ox 01/16/21 09:10 65 01/16/21 08:10 36.9 C 63 16 114/67 98 01/16/21 05:16 65 01/16/21 03:11 36.6 C 84 16 103/60 99 01/15/21 23:32 36.4 C L 75 16 95/56 L 98 Diagnostic Findings Echo: Normal Telemetry: First degree AV block, no second degree since yesterday AM PG Care Time/CCT Total # of Minutes Spent Total Time Spent with Patient: Total time spent is greater than 50% in coordination of care (as documented) at patient's floor/unit and/or counseling patient: Coding Level of Care Code 46457 Subseq Hosp Care Lvl 2 Diagnoses Second degree AV block, Mobitz type I I44.1 Lyme carditis A69.29; I51.89
[2021-01-16] MEDS ORDERED: cefTRIAXone SODIUM 2,000 MG in DEXTROSE 5% 50 ML IV ONE (10:00)
--- NOTE | 2021-01-16 11:23 | XCELERA ---
[id number]
[2021-01-16 16:36] LABS: 18KDIGG Band NON-REACTIVE; 23KDIGG Band REACTIVE; 23KDIGM Band REACTIVE; 28KDIGG Band NON-REACTIVE; 30KDIGG Band NON-REACTIVE; 39KDIGG Band REACTIVE; 39KDIGM Band REACTIVE; 41KDIGG Band REACTIVE; 41KDIGM Band REACTIVE; 45KDIGG Band NON-REACTIVE; 58KDIGG Band NON-REACTIVE; 66KDIGG Band NON-REACTIVE; 93KDIGG Band NON-REACTIVE; Lyme Antibodies, WB IgG NEGATIVE (NEGATIVE); Lyme Antibodies, WB IgM POSITIVE (NEGATIVE)
--- NOTE | 2021-01-16 16:59 | Discharge Summary ---
Date of Service January 16, 2021 Admission HPI Per Admitting Provider This a 20-year-old male without past medical history presents today complaining of intermittent palpitations and bradycardia. Patient is pleasant and historian. Patient apparently had a blotchy rash across his thorax along with some myalgias and fevers 2 weeks ago which had cleared spontaneously. Patient did not seek medical attention at that time. Over the past 5 days he feels he has been having some palpitations irregular heart rate. He has been having some mild fatigue and dizziness associated with this. He did go to the [facility] today and was found to have abnormal EKG which prompted his visit to the emergency room today. On lab work-up, he was found to have Lyme IgM and IgG that was positive with a pending Western blot. Patient is now being admitted for Lyme carditis. I did discuss the case with the patient with both his parents in the room and everybody is agreeable to the plan thus far. Principal Diagnosis Lyme carditis Discharge Exam In general he is awake alert oriented pleasant no distress. HEENT normocephalic atraumatic mucous membranes moist. Breathing unlabored no accessory muscle use good effort. Skin shows no rashes no pallor or icterus. Cardio shows sinus with first-degree AV block on the monitor. Discharge Data Allergies Allergy/AdvReac Type Severity Reaction Status Date / Time Penicillins Allergy Rash Unverified 01/14/21 16:04 Consultations 01/14/21 16:05 ED Decision to Admit Stat 01/15/21 06:45 Consult Cardiology Routine Hospital Course (1) Lyme carditis: Pt is a 20 yo male with no PMH with lyme carditis. 1) Lyme Carditis -Now improving. Was treated with ceftriaxonehis either second-degree heart block or complete heart block (somewhat difficult to differentiate on rhythm) has resolved to a simple first-degree AV blockboth myself and cardiology feel he is safe/stable for home. -Finish course of treatment with doxycycline -Discussed ADRs/what to watch for (particularly sun sensitivity and esophagitis) with doxy -Stable for home -Outpatient follow-up/outpatient EKG to ensure resolution of all rhythm issues Answered all questions the best my ability, patient stable for home, patient expressed good understanding of diagnosis and plan Total Time Total Time Spent Total Time Spent (In Minutes): Less than 30 Discharge Plan Discharge Items Patient Disposition: Home - Self-Care Reason For Visit: LYME CARDITIS Discharge Diagnosis: Lyme Carditis Activity: Per Instructions section Non-emergency contact: Primary Care Provider Call non-emergency contact if: you have any medication questions, your symptoms worsen and your temperature is above 101 Follow-up/Referrals: Yousif Dobbins MD [Physician] - 01/24/21 2:30 pm Eligio Galo MD [Primary Care Provider] - 01/25/21 7:50 am Diet: Regular Addtl Attending Provider Instructions: You were admitted to [facility] due to cardiac symptoms. You were subsequently found to be Lyme positive and to have associated heart block caused by the infection. As such, you were treated with intravenous antibiotics, which helped your heart block improve. You were still having first- degree heart block, which should not cause any issues for you and will continue to improve with oral antibiotics. We will start you on doxycycline 100mg orally twice daily for the next 28 days--start this medication tomorrow morning. We recommend that you follow up with your PCP for repeat EKG and continued monitoring of your condition. The antibiotic you will take makes it more likely that you may get very bad sunburns when exposed to the sun, so we recommend that you wear sunscreen and take extra steps to protect yourself whil josh this medication. Additionally, it is important that you take this with lots of water and food if possible, as it m ay lead to esophageal ulcers if a pill gets stuck in your throat. If you develop any concerning symptoms including but not limited to chest pain, worsening palpitations, shortness of breath, or any other signs that make you concerned please call your primary care provider or return to the hospital for further evaluation. Pending Studies at Discharge: No Stand-Alone Forms: [facility] [employer] [employer], Smoking Cessation Medications and DC Order Prescriptions: New doxycycline hyclate 100 mg capsule 100 mg PO BID 28 Days Qty: 56 RF: 0 Continued fexofenadine 180 mg Tablet 180 mg PO DAILY RF: 0 diphenhydramine HCl [Benadryl] 25 mg Capsule 25 mg PO Q6H PRN (Reason: Allergy Symptoms) RF: 0 fluticasone propionate 50 mcg/actuation [place],Suspension 2 spray INTRANASAL DAILY RF: 0 Discharge Orders: Discharge Order (Routine); Ordered 01/16/21 Ordered By: Gordy Nam Admission Data Admit Date/Time: 01/14/21 16:54 Attending Provider: Leo Rodarte Admit Provider: Donald Yun Primary Care Provider: Eligio Galo Other Providers: Donald Yun ; Shaheed Baer Other Interventions: Discharge Summary Assessment (RN) Last Done: 01/16/21 10:31 Coding Level of Care Code D/C DAY MANAGEMENT <30 MINS Diagnoses Lyme carditis A69.29; I51.89
--- NOTE | 2021-01-16 17:03 | Electrocardiogram Report ---
Test Reason : Blood Pressure : / mmHG Vent. Rate : 069 BPM Atrial Rate : 069 BPM P-R Int : 400 ms QRS Dur : 096 ms QT Int : 422 ms P-R-T Axes : 019 -37 -12 degrees QTc Int : 452 ms Sinus rhythm with 1st degree A-V block Left axis deviation Abnormal ECG When compared with ECG of 15-JAN-2021 05:38, QRS axis Shifted left Non-specific change in ST segment in Inferior leads T wave inversion now evident in Inferior leads Confirmed by David Lucia ([id number]) on 01/16/2021 5:03:15 PM Referred By: Eligio Galo Confirmed By:David Lucia
== END 2021-01-16 12:20 | disposition home or self-care (01) | DRG 869 ==
LOC: ED 13:29 → SUATTDRO 16:54 → 2S 16:54 → 2N 01-15 12:42